=== PATIENT | female | born 1970 | race Caucasian/White ===

== ENCOUNTER 2016-09-07 12:41 | Emergency (ER) | payer OTHER ==
[~2016-09-07] VITALS: Ht 149.9 cm; Wt 50.5 kg
[2016-09-07 12:45] VITALS: Ht 149.9 cm; Wt 50.5 kg
[2016-09-07] MEDS ORDERED: SOD CHLORIDE 0.9% 1,000 ML IV STA (13:23)
[2016-09-07] MEDS ORDERED: ONDANSETRON 4 MG INJ IV STA (13:23)
[2016-09-07 13:47] LABS: ADD SCAN DIFF NO
[2016-09-07 13:51] LABS: BASOPHILS % 0.2 % (0.0-2.0); EOSINOPHILS # 0.1 10^3/ul (0.0-0.5); EOSINOPHILS % 0.7 % (0.0-7.0); HEMATOCRIT 47.1 % (37.0-47.0); HEMOGLOBIN 15.1 g/dl (12.0-16.0); LYMPHOCYTES # 2.1 10^3/ul (0.8-2.9); LYMPHOCYTES % 14.9 % (15.0-51.0); MEAN CORPUSCULAR HEMOGLOBIN 28.9 pg (29.0-33.0); MEAN CORPUSCULAR HGB CONC 32.1 g/dl (32.0-37.0); MEAN CORPUSCULAR VOLUME 90.2 fl (82.0-101.0); MEAN PLATELET VOLUME 10.1 fl (7.4-10.4); MONOCYTE # 0.4 10^3/ul (0.3-0.9); MONOCYTES % 2.8 % (0.0-11.0); NEUTROPHIL # 11.6 10^3/ul (1.6-7.5); NEUTROPHILS % 81.1 % (39.0-77.0); PLATELET COUNT 385 10^3/UL (140-415); RED BLOOD COUNT 5.22 10^6/ul (4.20-5.40); RED CELL DISTRIBUTION WIDTH 13.2 % (11.5-14.5); WHITE BLOOD COUNT 14.4 10^3/ul (4.8-10.8)
[2016-09-07 14:01] LABS: ALBUMIN 4.4 g/dl (3.3-4.9)
[2016-09-07 14:02] LABS: CHLORIDE 103 mmol/L (97-110); INR 0.95; POTASSIUM 4.7 mmol/L (3.5-5.1); PROTIME 12.7 Sec (12.2-14.2); SODIUM 138 mmol/L (135-144)
[2016-09-07 14:03] LABS: PARTIAL THROMBOPLASTIN TIME 25.9 Sec (25.0-35.0)
[2016-09-07 14:04] LABS: ALBUMIN/GLOBULIN RATIO 1.12; AMYLASE 89 U/L (11-123); ANION GAP 14 (8-16); ASPARTATE AMINO TRANSFERASE 27 IU/L (15-46); BILIRUBIN,INDIRECT 0.2 mg/dl (0-1.1); BILIRUBIN,TOTAL 0.2 mg/dl (0.2-1.3); CARBON DIOXIDE 26 mmol/L (21-31); CREATININE 0.48 mg/dl (0.44-1.00); TOTAL PROTEIN 8.3 g/dl (6.1-8.1)
[2016-09-07 14:05] LABS: ALANINE AMINOTRANSFERASE 30 IU/L (13-69); ALKALINE PHOSPHATASE 119 IU/L (42-121); BLOOD UREA NITROGEN 10 mg/dl (7-20); CALCIUM 9.8 mg/dl (8.4-10.2); GLUCOSE 286 mg/dl (70-220)
[2016-09-07 14:18] LABS: TROPONIN-I < 0.012 ng/ml (0.00-0.12)
[2016-09-07] MEDS ORDERED: IOHEXOL 300MG/ML 150 ML BTL ONE (14:19)
[2016-09-07] MEDS ORDERED: SOD CHLORIDE 0.9% 100 ML ONE (14:19)
--- NOTE | 2016-09-07 14:29 | ERA ---
ER Documentation Chief Complaint Date/Time DATE: 09/07/16 TIME: 14:28 Chief Complaint ap; min bm for 2 weeks; generalized weakness HPI This is a 45-year-old female with a known history of hypertension and non- insulin-dependent diabetes mellitus. The patient presents to the emergency department today complaining of a sudden onset of severe abdominal pain that occurred upon awakening this morning roughly 8 hours prior to arrival. Patient indicates that the pain is most prominent in the suprapubic region and radiates to left lower quadrant. The patient also indicates she has been experiencing abdominal distention that gradually worsened over the past 2 weeks. She indicates she has not had a bowel movement for 2 weeks despite taking Dulcolax and [id number] Ex-Lax. She has never had any similar symptoms in the past. She is passing gas. She denies any fever shaking or chills. She has no shortness of breath at rest or exertion. She did have one episode of nonbloody nonbilious emesis while in the triage room. ROS All systems reviewed and are negative except as per history of present illness. Medications Home Meds No Active Prescriptions or Reported Meds Allergies Allergies: Coded Allergies: No Known Allergy (Unverified , 09/07/16) Physical Exam Vitals Vital Signs Date Time Temp Pulse Resp B/P Pulse Ox O2 Delivery O2 Flow Rate FiO2 09/07/16 12:45 97.8 67 18 177/90 98 Physical Exam Constitutional:Well-developed. Well-nourished. HEENT:Normocephalic. Atraumatic.Pupils were equal round reactive to light. Moist mucous membranes.No tonsillar exudates. Neck: No nuchal rigidity. No lymphadenopathy. No posterior cervical spine tenderness or step-offs. Respiratory: Not using accessory muscles of respiration.Lungs were clear to auscultation bilaterally. No rhonchi. No rales. No wheezing. Cardiovascular: Regular rate regular rhythm.No murmurs. No rubs were appreciated.S1, S2 normal. Distal pulses are palpable 2+ bilaterally. GI: Abdomen was soft. Abdominal distention with tenderness in left lower quadrant.. No pulsatile abdominal masses or bruits. No rebound. No guarding. Bowel sounds were present and normal. Vertical incision scar below the umbilicus from previous hysterectomy Muscle skeletal: Full range of motion of both the upper and lower extremities bilaterally.Normal muscle tone.No assymetrical calf tenderness or swelling. Skin: No petechia, no purpura. No lesions on the palms or the soles of the feet. No maculopapular rash. NEURO: Patient was alert, awake, orientated x3.No facial droop. Gait observed and normal with no ataxia.Speech had regular rate and rhythm. No focal neurological deficits. Result Diagram: 09/07/16 1339 09/07/16 1339 Results 24 hrs Laboratory Tests Test 09/07/16 12:52 09/07/16 13:39 Bedside Glucose 246mg/dL White Blood Count 14.410^3/ul Red Blood Count 5.2210^6/ul Hemoglobin 15.1g/dl Hematocrit 47.1% Mean Corpuscular Volume 90.2fl Mean Corpuscular Hemoglobin 28.9pg Mean Corpuscular Hemoglobin Concent 32.1g/dl Red Cell Distribution Width 13.2% Platelet Count 74265^3/UL Mean Platelet Volume 10.1fl Neutrophils % 81.1% Lymphocytes % 14.9% Monocytes % 2.8% Eosinophils % 0.7% Basophils % 0.2% Nucleated Red Blood Cells % 0.0/100WBC Neutrophils # 11.610^3/ul Lymphocytes # 2.110^3/ul Monocytes # 0.410^3/ul Eosinophils # 0.110^3/ul Basophils # 0.010^3/ul Nucleated Red Blood Cells # 0.010^3/ul Prothrombin Time 12.7Sec Prothrombin Time Ratio 1.0 INR International Normalized Ratio 0.95 Activated Partial Thromboplast Time 25.9Sec Sodium Level 138mmol/L Potassium Level 4.7mmol/L Chloride Level 103mmol/L Carbon Dioxide Level 26mmol/L Anion Gap 14 Blood Urea Nitrogen 10mg/dl Creatinine 0.48mg/dl Glucose Level 286mg/dl Calcium Level 9.8mg/dl Total Bilirubin 0.2mg/dl Direct Bilirubin 0.00mg/dl Indirect Bilirubin 0.2mg/dl Aspartate Amino Transf (AST/SGOT) 27IU/L Alanine Aminotransferase (ALT/SGPT) 30IU/L Alkaline Phosphatase 119IU/L Troponin I < 0.012ng/ml Total Protein 8.3g/dl Albumin 4.4g/dl Globulin 3.90g/dl Albumin/Globulin Ratio 1.12 Amylase Level 89U/L Lipase 19U/L Current Medications Medications (Trade) Dose Ordered Sig/Rakesh Route PRN Reason Start Time Stop Time Status Last Admin Dose Admin Sodium Chloride (NS) 1,000 ml @ 1,000 mls/hr Q1H STAT IV 09/07/16 13:23 09/07/16 14:22 DC 09/07/16 13:40 Ondansetron HCl (Zofran Inj) 4 mg ONCE STAT IV 09/07/16 13:23 09/07/16 13:26 DC 09/07/16 13:40 Iohexol 150 ml 150 ml STK-MED ONCE .ROUTE 09/07/16 14:19 09/07/16 14:20 DC Sodium Chloride (NS) 100 ml @ ud STK-MED ONCE .ROUTE 09/07/16 14:19 09/07/16 14:20 DC Mineral Oil (Fleet Mineral Oil Enema) 133 ml ONCE ONCE KS 09/07/16 14:30 09/07/16 14:31 DC Magnesium Hydroxide (Milk Of Mag) 30 ml ONCE ONCE PO 09/07/16 15:00 09/07/16 15:01 Diclofenac Sodium (Dyloject) 37.5 mg ONCE STAT IV 09/07/16 14:54 09/07/16 14:55 UNV Procedures/MDM This patient presented to the emergency department with abdominal pain and was seen and evaluated by myself. My differential diagnosis included but was not limited to abdominal aortic aneurysm, appendicitis, pancreatitis, perforated peptic ulcer, perforated viscus, Boerhaaves syndrome or visceral pain such as diverticulitis, DKA, esophagitis, hepatitis or bowel obstruction. The patient was placed on a cardiac care unit nurse, continuous pulse oximetry, and IV access was established by nursing staff. The patient had an episode of nonbloody nonbilious emesis during physical exam. The patient was given IV Zofran and a liter bolus of normal saline. He did obtain a CT scan of the abdomen that was reviewed by myself the radiologist indicated there is no evidence of obstructive uropathy, diverticulitis or appendicitis the patient did have constipation. She was given a Fleet enema and milk of magnesium. She was given IV Toradol for analgesia control. The patient had hyperglycemia without ketosis. This resolved with a liter bolus of normal saline and she was also given 500 mg of metformin and she stated she had not taken her metformin for several days she has not refilled the prescription. I obtained a 12-lead EKG tracing to rule out atypical myocardial infarction 12 Lead EKG tracing ordered and reviewed by myself showed: Normal sinus rhythm of 70 bpm and no arrhythmia. KS interval prolonged at 236 ms with a first-degree AV block. QRS duration widened at 140 ms with left ventricle hypertrophy No ST segment elevation No ST segment depression. No changes consistent with acute ischemia. After the patient had a bowel movement in the emergency department I did feel she could be safely discharged home. The patient was discharged home in fair condition. They were instructed to return to the emergency department at any time if there was any worsening of their condition. The patient stated they would follow up with their PCP in the next 24-48 hours to initiate a suitable medication regimen under the care of their PCP as well as to allow their PCP to monitor any drug reactions. The patient was discharged home with prescriptions after they gave informed consent to the new medication. They were also fully informed by myself on the adverse effects and adverse drug interactions in order to provide adequate safeguards to prevent possible adverse reactions to medications. Departure Diagnosis: Primary Impression: Constipation Qualified Code: K59.00 - Constipation, unspecified constipation type Additional Impression: Hyperglycemia without ketosis Condition: Fair YELENA CUELLAR Sep 07, 2016 14:29
[2016-09-07] MEDS ORDERED: MINERAL OIL 133 ML ENEMA PR ONE (14:30)
--- NOTE | 2016-09-07 14:46 | RADRPT ---
PROCEDURE: CT abdomen and pelvis with intravenous contrast. CLINICAL INDICATION: Abdominal pain. Constipation. Weakness. TECHNIQUE: Following intravenous contrast, spiral CT of the abdomen pelvis was performed and is re constructed at 2.5 mm contiguous axial intervals from the dome of the diaphragm to the inferior pubi c rami. Computer reformatted coronal and sagittal images are included. CT D I 8 millicurie Dose 472 millicurie per centimeter COMPARISON: None. FINDINGS: Lung bases are clear of any infiltrate or mass. There is no effusion. The liver is of normal size, contour and attenuation with no mass or intrahepatic ductal dilatation. No gallstones are present. No splenic, adrenal or pancreatic abnormalities present. Kidneys enhance symmetrically. No hydronephrosis, calculus or solid masses present. There is a 3 cm cortical cyst of the right kidney. Ureters are of normal course and caliber with no stone. No denae dder mass or stone is present. Uterus and ovaries are normal. No bowel mass or obstruction is seen. The appendix is normal. There is constipation. There is no p hlegmon, ascites or pneumoperitoneum. No aneurysm is detected. There is no adenopathy. The osseous structures are intact. IMPRESSION: No evidence of urolithiasis, obstructive uropathy, diverticulitis or appendicitis. Right renal cyst. Constipation. .Vikas Ortiz MD, Date Time Electronically viewed and signed by .Vikas Ortiz MD, on 09/07/2016 14:46 .A/
[2016-09-07] MEDS ORDERED: DICLOFENAC SODIUM 37.5 MG/ML VIAL IV STA (14:54)
[2016-09-07] MEDS ORDERED: MAGNESIUM HYDROXIDE 30ML CUP PO ONE (15:00)
[2016-09-07 16:50] LABS: ADD UMIC NO; URINE BILIRUBIN (Dip) NEGATIVE (NEGATIVE); URINE BLOOD (Dip) NEGATIVE (NEGATIVE); URINE COLOR LT. YELLOW (YELLOW); URINE GLUCOSE (Dip) >=1000 % (NEGATIVE); URINE KETONES (Dip) 15 (NEGATIVE); URINE LEUKOCYTE ESTERASE (Dip) NEGATIVE (NEGATIVE); URINE NITRITE (Dip) NEGATIVE (NEGATIVE); URINE TOTAL PROTEIN (Dip) NEGATIVE (NEGATIVE); URINE UROBILINOGEN (Dip) 0.2 E.U./dL (0.1-1.0)
[2016-09-07] MEDS ORDERED: LACTULOSE 30ML CUP PO ONE (17:30)
[2016-09-07] MEDS ORDERED: MAGN400O4 PO (18:22)
[2016-09-07 19:33] VITALS: BP 120/74; PULSE 90; RESP 16; TEMP 98
[2016-09-07] MEDS ORDERED: metFORMIN 500 MG TAB PO ONE (20:00)
== END 2016-09-07 19:34 | disposition home or self-care (01) ==
LOC: E/R 12:41
DX: K59.00 Constipation, unspecified (principal); E11.65 Type 2 diabetes mellitus with hyperglycemia; I10 Essential (primary) hypertension; R11.10 Vomiting, unspecified
CPT/HCPCS: 36415; 74177; 80053; 81003; 82150; 82962; 83690; 84484; 85025; 85610; 85730; 87086; 93005; 96374; 96375; J2405; J7030; Q9967; Z7502; Z7610